=== PATIENT | male | born 1975 | race Caucasian/White ===

== ENCOUNTER 2016-06-07 12:54 | Emergency (ER) | payer OTHER ==
[~2016-06-07] VITALS: Ht 175.3 cm; Wt 118.6 kg
[~2016-06-07 12:54] MED LIST: ASPEC81 PO; LPR25 PO; LPT40 PO; LSN20 PO; NAPR1TAB9 PO; NICO1DIS7 TD; NSP500 PO; PLV75 PO
[2016-06-07 12:58] VITALS: TEMP 37.1; Ht 175.3 cm; Wt 118.6 kg
[2016-06-07] MEDS ORDERED: HYDROmorphone INJ 1 MG/ML SYR IM ONE ×2 (13:15→14:30)
--- NOTE | 2016-06-07 13:19 | EMERGENCY ROOM VISIT NOTE ---
History Report prepared by Liza: William Harris Under the Supervision of: Dr. Jon Donahue M.D. First contact with patient: 13:04 Chief Complaint: ABDOMINAL PAIN Stated Complaint: SOMETHING POPPED IN INTESTINE REGION Nursing Triage Summary: Patient c/o left sided abd pain after coughing last night. States something popped. also c/o nausea this morning. History of Present Illness The patient is a 41 year old male who presents to the Emergency Room with complaints of persistent lower back pain that started 0 last night. He says he was smoking, and then coughed. After coughing, he suddenly felt something pop and has had persistent pain ever since. The patient notes that he has pain with any general movement. He did do a 14-mile kayak trip the day before the pain came on. On the way to the hospital, he states that he coughed and had a little pop, and then the pain began to subside a bit. 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 He denies any bowel problems, but he notes that it is hard to push them due to the pain. Source of History: patient Onset: 2329 last night Position: back (lower) Timing: other (persistent) Modifying Factors (Worsening): movement Note: Associated symptoms: Denies any bowel problems, but notes that it is hard to push them due to the pain. Review of Systems All systems have been listed, reviewed, and are negative other than those previously mentioned. Please see Additional Medical History Sheet. Past Medical & Surgical Medical Problems: (1) Anxiety (2) Anxiety State Nos (3) CAD (coronary artery disease) (4) Chronic Liver Dis Nec (5) Fatty liver (6) H/O acute pancreatitis (7) History of alcohol abuse (8) HTN (hypertension) (9) Hyperlipidemia (10) Hypertension Nos (11) [place] (12) Tobacco abuse Surgical Problems: (1) S/P coronary artery stent placement Family History Diabetes mellitus GRANDFATHER Gallbladder disease Heart disease MOTHER Hypertension Kidney disease Kidney stones Social History Smoking Status: Current Every Day Smoker Alcohol Use: occasionally Drug Use: marijuana Marital Status: single Occupation Status: employed Current/Historical Medications Scheduled Aspirin (Aspirin EC Low Dose), 81 MG PO QAM Atorvastatin (Atorvastatin Calcium), 40 MG PO QAM Clopidogrel Bisulfate (Clopidogrel), 75 MG PO QAM Cyclobenzaprine Hcl (Flexeril), 10 MG PO TID Lisinopril (Lisinopril), 20 MG PO QAM Metoprolol Tartrate (Lopressor), 12.5 MG PO BID Naproxen (Aleve), 440 MG PO prn ud Niacin (Niacin ER), 500 MG PO QAM Varenicline Tartrate (Chantix), 2 TAB PO UD Scheduled PRN Ibuprofen Tab (Motrin), 600 MG PO Q6H PRN for Pain Oxycodone Immediate Rel Tab (Roxicodone Ir), 1-2 TAB PO Q4H PRN for Severe Pain Allergies Coded Allergies: No Known Allergies (Verified , 06/07/16) Physical Exam Vital Signs Date Time Temp Pulse Resp B/P Pulse Ox O2 Delivery O2 Flow Rate FiO2 06/07/16 14:29 70 16 172/122 97 Room Air 06/07/16 12:58 37.1 78 20 116/71 96 Room Air Physical Exam GENERAL: Patient awake, alert, oriented x 3. Patient follows commands. Patient does not appear toxic. Patient is adequately hydrated and well- nourished. SKIN: No erythema, pallor, cyanosis or rash HEENT: Normal head, pupils equal, reactive to light and accommodation. LUNGS: Clear to auscultation. No wheezes, no rales, no rhonchi. HEART: No murmurs. No gallops. No rubs BACK: Tenderness and spasm to right perivertebral musculature in L2 through L4. No tenderness over spine, no step-offs noted. ABDOMEN: No masses, no rebound, no hepatomegaly or splenomegaly. EXTREMITIES: No signs of trauma or infection. No pedal or pretibial edema. No calf or thigh tenderness. NEUROLOGIC: Cranial nerves II-XII within normal limits. No gross motor sensory function deficits. Medical Decision & Procedures ER Provider Diagnostic Interpretation: X ray results are stated below per my interpretation and the radiologist's interpretation. L-SPINE MIN 4 VIEWS ROUTINE CLINICAL HISTORY: Right-sided back pain. COMPARISON: CT of the chest, abdomen and pelvis October 14, 2015. FINDINGS: Alignment of the lumbar spine is anatomic. Vertebral body heights are maintained. There is no acute fracture. Disc spaces are preserved. IMPRESSION: Unremarkable lumbar spine radiographs. Electronically signed by: Devan Bernardo M.D. 06/07/2016 1:55 PM Dictated Date/Time: 06/07/2016 1:54 PM Medications Administered Medications (Trade) Dose Ordered Sig/Delia Route Start Time Stop Time Status Last Admin Dose Admin Hydromorphone HCl (Dilaudid Inj) 1 mg ONE ONCE IM 06/07/16 13:15 06/07/16 13:16 DC 06/07/16 13:22 1 MG Hydromorphone HCl (Dilaudid Inj) 1 mg ONE ONCE IM 06/07/16 14:30 06/07/16 14:31 DC 06/07/16 14:29 1 MG ED Course 1306: Past medical records reviewed. The patient was evaluated in room A12B. A complete history and physical examination was performed. 1315: Ordered Dilaudid Inj 1 mg IM. 1420: I reevaluated the patient and he wants another shot. I will give him another one. 1443: Upon reevaluation, the patient appeared to have improvement of his symptoms. I discussed today's findings with him. He verbalized agreement of the treatment plan. He was discharged home. Medical Decision Nurses notes reviewed. Medical history sheet reviewed. Differential diagnosis includes but is not limited to: muscular strain, cauda equina, ruptured nucleus pulposus. Lumbar spine x-rays were obtained. No fracture, dislocation subluxation was seen. The patient appears to have muscular strain and spasm. The patient has no neurologic deficits. He was given 1 mg of IM Dilaudid 2. The patient will be discharged with prescriptions for Flexeril and OxyIR. The patient is to follow-up with his family physician. [place] Drug Monitoring Program Search Results: patient reviewed within database, no issues identified Impression Primary Impression: Back strain Additional Impression: Back spasm Scribe Attestation The scribe's documentation has been prepared under my direction and personally reviewed by me in its entirety. I confirm that the note above accurately reflects all work, treatment, procedures, and medical decision making performed by me. Departure Information Dispostion Home / Self-Care Prescriptions Oxycodone Immediate Rel Tab (ROXICODONE IR) 5 Mg Tab 1-2 TAB PO Q4H Y for Severe Pain, #20 TAB Prov: Jon Donahue M.D. 06/07/16 Cyclobenzaprine Hcl (FLEXERIL) 10 Mg Tab 10 MG PO TID, #20 TAB Prov: Jon Donahue M.D. 06/07/16 Ibuprofen Tab (MOTRIN) 600 Mg Tab 600 MG PO Q6H Y for Pain, #30 TAB Prov: Jon Donahue M.D. 06/07/16 Referrals Jose Navarro M.D. (PCP) Patient Instructions My [facility] Additional Instructions One Flexeril every 8 hours until pain has resolved. 600 mg ibuprofen every 6 hours until pain has resolved. Do not take Aleve or Naprosyn with ibuprofen. 1-2 OxyIR every 4 hours as needed for more severe pain. Do not drive or operate machinery while taking Flexeril or OxyIR. Follow-up with your family physician within the next 2 weeks. Problem Qualifiers
--- NOTE | 2016-06-07 13:56 | DIAGNOSTIC IMAGING REPORT ---
L-SPINE MIN 4 VIEWS ROUTINE CLINICAL HISTORY: Right-sided back pain. COMPARISON: CT of the chest, abdomen and pelvis October 14, 2015. FINDINGS: Alignment of the lumbar spine is anatomic. Vertebral body heights are maintained. There is no acute fracture. Disc spaces are preserved. IMPRESSION: Unremarkable lumbar spine radiographs. Electronically signed by: Devan Bernardo M.D. 06/07/2016 1:55 PM Dictated Date/Time: 06/07/2016 1:54 PM
[2016-06-07] MEDS ORDERED: VAREPAK PO (14:25)
[2016-06-07 14:29] VITALS: BP 172/122; PULSE 70; O2SAT 97
[2016-06-07] MEDS ORDERED: OXYC1TAB3 PO (14:39)
[2016-06-07] MEDS ORDERED: CYCL10TA6 PO (14:39)
[2016-06-07] MEDS ORDERED: IBUP-1427 PO (14:39)
[2016-06-09] MEDS ORDERED: ATOR-22 PO (08:51)
[2016-06-09] MEDS ORDERED: METF-80 PO (08:51)
[2016-06-09] MEDS ORDERED: VAREPAK PO (08:51)
[2016-06-09] MEDS ORDERED: ZNTT/150 PO (08:51)
[2016-06-09] MEDS ORDERED: CLOP1TAB15 PO (08:51)
[2016-06-09] MEDS ORDERED: AMIT10TA6 PO (08:51)
[2016-06-09] MEDS ORDERED: IBUP600T44 PO (08:52)
[2016-06-09] MEDS ORDERED: OXYC1CAP5 PO (08:52)
[2016-06-09] MEDS ORDERED: CYCL10TA6 PO (08:52)
== END 2016-06-07 14:53 | disposition home or self-care (01) ==
LOC: C.EDB 12:55 → C.EDA 14:53
DX: S39.012A Strain of muscle, fascia and tendon of lower back, initial encounter (principal); M62.830 Muscle spasm of back; X58.XXXA Exposure to other specified factors, initial encounter; I25.10 Atherosclerotic heart disease of native coronary artery without angina pectoris; I10 Essential (primary) hypertension; E78.5 Hyperlipidemia, unspecified; F17.200 Nicotine dependence, unspecified, uncomplicated; I25.2 Old myocardial infarction; Z79.02 Long term (current) use of antithrombotics/antiplatelets; Z79.82 Long term (current) use of aspirin; Z79.899 Other long term (current) drug therapy; Z83.3 Family history of diabetes mellitus; Z82.49 Family history of ischemic heart disease and other diseases of the circulatory system; Z84.1 Family history of disorders of kidney and ureter

== ENCOUNTER → 2016-06-16 | Day surgery (SDC) | payer OTHER ==
[2016-06-09 08:52] VITALS: Ht 177.8 cm; Wt 118.2 kg
[~2016-06-16] VITALS: Ht 177.8 cm; Wt 118.2 kg
[~2016-06-16] MED LIST changes: +AMIT10TA6 PO; -ASPEC81 PO; +ATOR-22 PO; +CIPROFLOXACIN / D5W 400 MG IV SCH; +CIPROFLOXACIN 400MG / 200ML D5W IV ONE; +CLOP1TAB15 PO; +CYCL10TA6 PO; +IBUP600T44 PO; +LACTATED RINGER'S 1000ML 1,000 ML IV ONE; +LACTATED RINGER'S 1000ML 1,000 ML IV SCH; -LPR25 PO; -LPT40 PO; -LSN20 PO; +METF-80 PO; -NAPR1TAB9 PO; -NICO1DIS7 TD; -NSP500 PO; +OXYC1CAP5 PO; -PLV75 PO; +VAREPAK PO; +ZNTT/150 PO
--- NOTE | 2016-06-16 10:03 | Endo History and Physical ---
History & Physical Date of Service: Jun 16, 2016. Chief Complaint: pancreatic cyst Referring Physician: Ms. Giuseppe garcia History of Present Illness 41 year old male found to have a 16 to 18 mm pancreatic head cyst for EUS today. Past Surgical History Hx Cardiac Surgery: Yes (HEART CATH X STENT) Hx Abdominal Surgery: No Hx Post-Op Nausea and Vomiting: No Hx Cancer Surgery: No Hx Thoracic Surgery: No Hx Orthopedic: Yes (RIGHT ORIF TIB/FIB, CLOSED REDUCTION WRIST) Hx Urinary Tract Surgery: No Social History Smoking Status: Current Every Day Smoker Hx Substance Use: Yes (MARIJUANNA DAILY) Hx Alcohol Use: Yes (SOCIAL) Allergies Coded Allergies: No Known Allergies (Verified , 06/09/16) Current Medications Reported Home Medications Medications Dose Route/Sig Max Daily Dose Days Date Category Dose Instructions Flexeril (Cyclobenzaprine Hcl) 10 Mg Tab 10 Mg PO TID PRN 06/09/16 Reported Oxycodone Hcl 5 Mg Cap 1 Cap PO QID PRN 06/09/16 Reported Motrin (Ibuprofen) 600 Mg Tab 600 Mg PO Q6H PRN 06/09/16 Reported Chantix (Varenicline Tartrate) 1 Merlin Merlin 2 Tab PO UD 28 06/09/16 Reported Fortamet (Metformin Hcl) 500 Mg Tab 500 Mg PO BID 06/09/16 Reported Zantac (Ranitidine HCl) 150 Mg Tab 150 Mg PO BID 06/09/16 Reported Lipitor (Atorvastatin Calcium) 20 Mg Tab 20 Mg PO QAM 06/09/16 Reported Elavil (Amitriptyline Hcl) 10 Mg Tab 10 Mg PO HS 06/09/16 Reported Plavix (Clopidogrel Bisulfate) 75 Mg Tab 75 Mg PO QAM 06/09/16 Reported STOP 2 DAYS PRIOR Vital Signs Weight (Kilograms): 118.18 Height (Feet): 5 Height (Inches): 10 Assessment and Plan EGD / EUS planned today for evaluation of a moderate sized pancreatic cyst. The patient walked out and elected to not undergo the procedure today.
== END | disposition home or self-care (01) ==
LOC: C.ACU 10:06
PROVIDERS: ATTEND Internal Medicine Gastroenterology
DX: K86.2 Cyst of pancreas (principal); F17.210 Nicotine dependence, cigarettes, uncomplicated; Z79.899 Other long term (current) drug therapy; Z53.20 Procedure and treatment not carried out because of patient's decision for unspecified reasons

== ENCOUNTER 2018-08-18 01:51 | Inpatient (IN) ==
[2018-08-18] MEDS ORDERED: ONDANSETRON INJ 2 MG/ML 2 ML VIAL IV STA (02:20)
[2018-08-18] MEDS ORDERED: MoRPHine SULFATE 4 MG/ML 1 ML CARP\\VIAL IV STA (02:20)
[2018-08-18] MEDS ORDERED: SODIUM CHLORIDE 0.9% 1000ML 1,000 ML IV SCH (02:30)
[2018-08-18 02:31] LABS: Basophils # (auto) 0.01 K/uL (0-0.2); Basophils % (auto) 0.1 %; Eosinophils # (auto) 0.18 K/uL (0-0.5); Eosinophils % (auto) 1.7 %; Hematocrit (blood only) 43.4 % (42-52); Hemoglobin 15.8 g/dL (14.0-18.0); Immature Granulocytes # (auto) 0.02 K/uL (0.00-0.02); Immature Granulocytes % (auto) 0.2 %; Lymphocytes # (auto) 2.23 K/uL (1.2-3.4); Lymphocytes % (auto) 20.8 %; Mean Corpuscular Hgb Conc 36.4 g/dL (32-36); Mean Corpuscular Volume 84.3 fL (80-100); Mean Platelet Volume 8.6 fL (7.4-10.4); Monocytes # (auto) 0.93 K/uL (0.11-0.59); Monocytes % (auto) 8.7 %; Neutrophils # (auto) 7.37 K/uL (1.4-6.5); Neutrophils % (auto) 68.5 %; Platelet Count 169 K/uL (130-400); RDW Coefficient of Variation 12.8 % (11.5-14.5); Red Blood Count 5.15 M/uL (4.7-6.1); White Blood Count 10.74 K/uL (4.8-10.8)
[2018-08-18 02:39] LABS: Alanine Aminotransferase 37 U/L (12-78); Amylase 599 U/L (25-115); Aspartate Aminotransferase 21 U/L (15-37); BUN Creatinine Ratio 14.9 (10-20); Blood Urea Nitrogen 15 mg/dl (7-18); Calcium 8.6 mg/dl (8.5-10.1); Carbon Dioxide 28 mmol/L (21-32); Chloride 103 mmol/L (98-107); Creatinine Clr Calc Pharmacy 122.6 ml/min; Est GFR (African American) 107.9; Est GFR (Non-African American) 93.1; Glucose 106 mg/dl (70-99); Potassium 3.6 mmol/L (3.5-5.1); Sodium 135 mmol/L (136-145)
[2018-08-18 02:50] LABS: Albumin Globulin Ratio 1.1 (0.9-2); Alkaline Phosphatase 92 U/L (45-117); Bilirubin,Total 0.5 mg/dl (0.2-1); Globulin 3.7 gm/dl (2.5-4.0); Total Protein 7.7 gm/dl (6.4-8.2); Troponin I < 0.015 ng/ml (0-0.045)
[2018-08-18] MEDS ORDERED: IOVERSOL 100ml IV PRN (03:25)
[2018-08-18 03:37] LABS: Appearance Urine Clear (Clear); Bilirubin Urine Negative (Negative); Blood Urine Negative (Negative); Color Urine Yellow; Glucose Urine UA Negative (Negative); Ketones Urine Negative (Negative); Leukocyte Esterase Urine Negative (Negative); Nitrite Urine Negative (Negative); Protein Urine Negative (Negative); Specific Gravity Urine 1.021 (1.000-1.030); Urobilinogen Urine Negative (Negative); pH Urine 7.5 (4.5-7.5)
[2018-08-18 03:58] LABS: Amphetamines+Metham, Urine Neg (Neg); Barbiturates, Urine Neg (Neg); Benzodiazepine, Urine Neg (Neg); Cocaine, Urine Neg (Neg); MDMA (Ecstacy), Urine Neg (Neg); Methadone, Urine Neg (Neg); Opiate, Urine Pos (Neg); Phencyclidine, Urine Neg (Neg)
[2018-08-18] MEDS ORDERED: HYDROmorphone INJ 1 MG/ML SYRINGE IV STA (04:05)
[2018-08-18] MEDS ORDERED: ACETAMINOPHEN 325 MG TAB PO PRN (05:54)
[2018-08-18] MEDS ORDERED: ONDANSETRON INJ 2 MG/ML 2 ML VIAL IV PRN (05:54)
[2018-08-18] MEDS ORDERED: LORazepam 1 MG/2 ML VIAL IV PRN (05:54)
[2018-08-18] MEDS ORDERED: GABAPENTIN 1200MG ALCOHOL WITHDRAWAL LOAD PO STA (05:54)
[2018-08-18] MEDS ORDERED: MULTI-VITAMIN INFUSION 10 ML, THIAMINE HCL 100 MG, FOLIC ACID 1 MG in SODIUM CHLORIDE 0... IV SCH (05:54)
[2018-08-18] MEDS ORDERED: GABAPENTIN 600 MG TAB PO SCH ×2 (06:00→12:00)
[2018-08-18] MEDS ORDERED: THIAMINE HCL 100 MG in SYRINGE 9 ML IV SCH (06:00)
--- NOTE | 2018-08-18 06:12 | History and Physical Report ---
DATE OF ADMISSION: 08/18/2018 CHIEF COMPLAINT: Abdominal pain. HISTORY OF PRESENT ILLNESS: This is a 43-year-old male with past medical history significant for CAD status post stent, hypertension, hyperlipidemia, history of pancreatitis, history of possible IPMN, history of alcohol abuse, tobacco abuse. He presents with abdominal pain. The patient is not taking any medications for the heart disease and is supposed to also follow with GI for his IPMN, but he did not follow with any criminal justice teacher or GI in the last 2 years. Not taking any medication because he thinks the medication does not help him. He is still drinking alcohol. 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 Last time he drank was 3 days ago. On 08/17/2018, he went to [facility] because of abdominal pain. The pain started in the morning at 9:00 a.m., severe in nature with some radiation to the back. He thought he might be having pancreatitis and he tried to be on liquid food, but it did not help. He went to [facility]. Because of them not giving any medications to him, he left the hospital, but when the labs came back, he was called and told that his lipase was elevated and he has pancreatitis and the patient chose to come to [facility]. Currently with the pain medication the pain is improved, but he says whenever he moves, he still has belly pain. His hemodynamics are stable. He has some headache. No runny nose, no sore throat, no cold symptoms, no chest pain, no shortness of breath, no cough. He felt somewhat feverish. No nausea, no vomiting, no diarrhea or constipation. No swelling in the legs. No rash. ALLERGIES: No known drug allergies. PAST MEDICAL HISTORY: As mentioned above. PAST SURGICAL HISTORY: Status post stent placement. MEDICATIONS: Not taking any medications. FAMILY HISTORY: Grandfather has diabetes, gallbladder, and heart disease. Mother has hypertension, kidney disease, and kidney stones. SOCIAL HISTORY: Smokes 1 pack a day. Alcohol, drinks several beers everyday, last drink was 3 days ago. History of marijuana use. Currently lives with his . REVIEW OF SYMPTOMS: As per HPI. Rest of the review of symptoms negative. PHYSICAL EXAMINATION: GENERAL: The patient is obese, not in acute distress. VITAL SIGNS: Temperature 36.9, pulse 70, respiratory rate 18, blood pressure 155/85, oxygen 95% on room air. HEENT: No pallor, no icterus. Pupils equal, round, and reactive to light. NECK: No JVD, no neck masses. CARDIOVASCULAR: S1, S2 heard, regular rate and rhythm, no murmur, no gallop. RESPIRATORY SYSTEM: Normal AP diameter. No accessory muscle use. No wheezing, no crackles. ABDOMEN: Soft, bowel sounds present. Diffuse tenderness. Mild guarding. No rigidity. CENTRAL NERVOUS SYSTEM: Cranial nerves II-XII grossly intact. Nonfocal. EXTREMITIES: No edema, no erythema. LABORATORY DATA: WBC 10.7, hemoglobin 15.8, hematocrit 45.4, platelets 169. Sodium 135, potassium 3.6, chloride 103, bicarbonate 28, BUN 15, creatinine 1, serum glucose 106, calcium 8.6, total bilirubin 0.5, AST 21, ALT 37, alkaline phosphatase 92. Troponin I less than 0.015, amylase 599, lipase 4639. TSH 3.5. Urinalysis negative. Urine drug screen positive for opiates. Ethyl alcohol level less than 3. IMAGING DATA: CT of abdomen and pelvis, official reading pending. EKG: Normal sinus rhythm at a rate of 70, no significant changes from previous EKG. ASSESSMENT AND PLAN: This is a 43-year-old male with past medical history of coronary artery disease, status post stent, hypertension, hyperlipidemia, history of pancreatitis, history of possible IPMN, alcohol abuse, tobacco abuse, presents with abdominal pain and found to have acute pancreatitis. 1. Acute pancreatitis, most likely alcohol induced. History of IPMN, supposed to follow with GI, but not following. Last alcohol drink was [address] will place him on n.p.o., aggressive IV fluids Ringer's lactate 200 mL hour, IV Dilaudid p.r.n., IV antiemetics p.r.n. Follow up report of CT of the abdomen and pelvis. Repeat the lipase. Consult GI for further recommendations. 2. History of coronary artery disease, status post stent, not taking any medications, not following with cardiology. Consider consulting cardiology while in the hospital and starting on his cardiac meds. Currently stable. EKG and troponins are negative and asymptomatic. 3. Hypertension, not taking any medication, monitor the blood pressure. 4. Hyperlipidemia, follow fasting lipid profile, not on any medication. 5. Alcohol abuse. States his last drink was 3 days ago. Alcohol level is less than 3.Will monitor for withdrawal. Start him on gabapentin withdrawal protocol and Ativan p.r.n. We will give banana bag. We will place him on IV thiamine daily and multivitamin daily. 6. History of tobacco abuse, needs counseling. 7. Deep venous thrombosis prophylaxis, sequential compression devices for now. 8. Disposition: Admit to medical floor. Level 1 full code. MTDD
--- NOTE | 2018-08-18 06:18 | Emergency Department Note ---
History of Present Illness General Chief complaint: Abdominal Pain Time Seen by Provider: 08/18/18 02:03 History of Present Illness Maximum Pain Intensity: 7 This is a 43-year-old male presenting to the emergency department for evaluation evaluation of pancreatitis. The patient states that his symptoms began within the past 24 hours. The patient initially went to [place] emergency department for his symptoms. The patient arrived at roughly 5:00 PM. Blood work was obtained and CT scan was ordered. The patient states that they were not adequately treating his pain, and he left AGAINST MEDICAL ADVICE around 6:30 PM. The patient was contacted roughly 11 PM with results that his lipase was greater than 5000. The patient was sleeping at the time, and his did not wish to wake him. When the patient awoke she told him of the results, and now the patient presents to the ER here for further management. The patient has a past history of cardiac disease and chronic alcohol use. The patient rates his current pain a 7/10. The patient did eat asparagus, shrimp, and rice after leaving [facility]. He did sleep for 4 hours without difficulty. The patient has had pancreatitis in the past with possible pancreatic cyst. The patient was to have scoping done on this cyst roughly 2 years ago, but refused further testing. The patient has essentially stopped all his medications and follow-up despite having the cardiac history. Home Medications Home Medications Medication Instructions Recorded Confirmed Type No Known Home Medications 08/18/18 08/18/18 History Allergies Allergy/AdvReac Type Severity Reaction Status Date / Time No Known Allergies Allergy Unknown Verified 08/18/18 02:22 Past Med/Surg History Medical History HTN (hypertension) (Chronic) H/O acute pancreatitis (Chronic) Anxiety (Chronic) Hyperlipidemia (Chronic) CAD (coronary artery disease) (Chronic) Tobacco abuse (Chronic) History of alcohol abuse (Chronic) Fatty liver (Chronic) Surgical History S/P coronary artery stent placement (Chronic) Social History Preferred Language: Kyrgyz Communication Ability: Effective Beliefs That Will Affect Care: None Current Living Situation: Spouse and Family Other Information That Helps Us Care for You: No Feels Safe at Home: Yes Safety Concerns: Feels Safe At This Time Smoking Status: Current every day smoker Tobacco Type: cigarettes Do You Dip or Chew Tobacco: No Second Hand Exposure: Yes Tobacco Cessation Education Requested by Patient: No Hx Alcohol Use: Yes Alcohol type: beer and hard liquor Hx Substance Use: No Review of Systems A total of 10 systems reviewed and were otherwise negative Physical Exam Vital Signs Vital Signs - 24 hr 08/18/18 01:56 08/18/18 03:39 08/18/18 05:32 Temperature 36.9 C Temperature Source Oral Sepsis Recent Fever Within 48 Hours No Sepsis Action Taken by Nursing No Action Required Pulse Rate 75 73 Pulse Rate [Right Finger] 70 Respiratory Rate 18 18 18 Respiratory Effort / Characteristics Non-Labored Spontaneous Non-Labored Spontaneous Respiratory Depth Normal Normal Respiratory Pattern Regular Regular Blood Pressure 186/111 H 151/101 H Blood Pressure [Right Arm] 155/85 H Blood Pressure Mean 136 Blood Pressure Mean [Right Arm] 108 Blood Pressure Position Sitting Blood Pressure Position [Right Arm] Lying Pulse Oximetry 97 95 96 Oxygen Delivery Method Room Air Room Air Room Air VITALS: Vitals are noted on the nurse's note and reviewed by myself. Vital signs stable. GENERAL: Well-developed, well-nourished, white male, who is in no acute distress and resting comfortably. Patient is cooperative with the examination. HEAD: Normocephalic atraumatic. NECK: Supple without nuchal rigidity. No lymphadenopathy. No thyromegaly. Cervical spine is nontender. HEART: Regular rate and rhythm without murmurs gallops or rubs. LUNGS: Clear to auscultation bilaterally without wheezes, rales or rhonchi. No retractions or accessory muscle use. ABDOMEN: Positive normal bowel sounds x 4. Soft with mild tenderness above the umbilicus. No distinct lower abdominal tenderness. No rebound or guarding. MUSCULOSKELETAL: No muscle atrophy, erythema, or edema noted. Full range of m otion in all extremities. NEURO: Patient was alert and oriented to person place and time. CN II through XII grossly intact. Course Administered Medications Discontinued Medications Hydromorphone HCl (Dilaudid) 1 mg IV NOW STA Stop: 08/18/18 04:06 Last Admin: 08/18/18 05:38 Dose: 1 mg Documented by: [id number] Sodium Chloride (Nss 1000ml) 1,000 mls @ 999 mls/hr IV .Q1H1M SAYRA Stop: 08/18/18 03:30 Last Infusion: 08/18/18 03:32 Dose: 0 mls/hr Documented by: [id number] Admin: 08/18/18 02:32 Dose: 999 mls/hr Documented by: [id number] Ioversol (Optiray 320 100ml) 100 ml IV ONCE PRN PRN Reason: Interaction Checking Stop: 08/22/18 03:24 Last Admin: 08/18/18 03:26 Dose: 93 ml Documented by: [id number] Morphine Sulfate (Morphine Sulfate) 4 mg IV NOW STA Stop: 08/18/18 02:21 Last Admin: 08/18/18 02:32 Dose: 4 mg Documented by: [id number] Ondansetron HCl (Zofran) 4 mg IV NOW STA Stop: 08/18/18 02:21 Last Admin: 08/18/18 02:32 Dose: 4 mg Documented by: [id number] Medical Decision Making Differential Diagnosis Differential diagnosis: Etiologies such as biliary colic, cholecystitis, hepatitis, pancreatitis, cardiac disease, pancreatitis, gastritis, peptic ulcer disease, appendicitis, cystitis, diverticulitis, mesenteric ischemia, inflammatory bowel disease, ileus, bowel obstruction, testicular/adnexal torsion, aortic pathology, shingles, as well as others were considered Laboratory Data Result diagrams: 08/18/18 02:14 08/18/18 02:14 Lab Results 08/18/18 08/18/18 08/18/18 Range/Units 02:14 02:14 03:11 WBC 10.74 (4.8-10.8) K/uL RBC 5.15 (4.7-6.1) M/uL Hgb 15.8 (14.0-18.0) g/dL Hct 43.4 (42-52) % MCV 84.3 (80-100) fL MCH 30.7 (25-34) pg MCHC 36.4 H (32-36) g/dL RDW Std Deviation 39.0 (36.4-46.3) fL RDW Coeff of Dmitry 12.8 (11.5-14.5) % Plt Count 169 (130-400) K/uL MPV 8.6 (7.4-10.4) fL Immature Gran % (Auto) 0.2 % Neut % (Auto) 68.5 % Lymph % (Auto) 20.8 % [place] % (Auto) 8.7 % Eos % (Auto) 1.7 % Baso % (Auto) 0.1 % Immature Gran # (Auto) 0.02 (0.00-0.02) K/uL Neut # (Auto) 7.37 H (1.4-6.5) K/uL Lymph # (Auto) 2.23 (1.2-3.4) K/uL [place] # (Auto) 0.93 H (0.11-0.59) K/uL Eos # (Auto) 0.18 (0-0.5) K/uL Baso # (Auto) 0.01 (0-0.2) K/uL Sodium 135 L (136-145) mmol/L Potassium 3.6 (3.5-5.1) mmol/L Chloride 103 (98-107) mmol/L Carbon Dioxide 28 (21-32) mmol/L Anion Gap 4.0 (3-11) BUN 15 (7-18) mg/dl Creatinine 1.00 (0.6-1.4) mg/dl Est Cr Clr Drug Dosing 122.6 ml/min Est GFR ( Amer) 107.9 Est GFR (Non-Af Amer) 93.1 BUN/Creatinine Ratio 14.9 (10-20) Glucose 106 H (70-99) mg/dl Calcium 8.6 (8.5-10.1) mg/dl Total Bilirubin 0.5 (0.2-1) mg/dl AST 21 (15-37) U/L ALT 37 (12-78) U/L Alkaline Phosphatase 92 (45-117) U/L Troponin I < 0.015 (0-0.045) ng/ml Total Protein 7.7 (6.4-8.2) gm/dl Albumin 4.0 (3.4-5.0) gm/dl Globulin 3.7 (2.5-4.0) gm/dl Albumin/Globulin Ratio 1.1 (0.9-2) Amylase 599 H (25-115) U/L Lipase 4639 H (73-393) U/L TSH 3.560 (0.300-4.500) uIu/ml Urine Color Urine Appearance (Clear) Urine pH (4.5-7.5) Ur Specific [place] (1.000-1.030) Urine Protein (Negative) Urine Glucose (UA) (Negative) Urine Ketones (Negative) Urine Blood (Negative) Urine Nitrite (Negative) Urine Bilirubin (Negative) Urine Urobilinogen (Negative) Ur Leukocyte Esterase (Negative) Urine Opiates Screen (Neg) Ur Methadone, Qual (Neg) Urine Barbiturates (Neg) Ur Phencyclidine (PCP) (Neg) U Amphetamin/Meth Scrn (Neg) MDMA (Ecstasy) Screen (Neg) U Benzodiazepines Scrn (Neg) Ur Cocaine Metabolite (Neg) U Marijuana (THC) Screen (Neg) Ethyl Alcohol mg/dL < 3.0 (0-3) mg/dl 08/18/18 08/18/18 Range/Units 03:20 03:20 WBC (4.8-10.8) K/uL RBC (4.7-6.1) M/uL Hgb (14.0-18.0) g/dL Hct (42-52) % MCV (80-100) fL MCH (25-34) pg MCHC (32-36) g/dL RDW Std Deviation (36.4-46.3) fL RDW Coeff of Dmitry (11.5-14.5) % Plt Count (130-400) K/uL MPV (7.4-10.4) fL Immature Gran % (Auto) % Neut % (Auto) % Lymph % (Auto) % [place] % (Auto) % Eos % (Auto) % Baso % (Auto) % Immature Gran # (Auto) (0.00-0.02) K/uL Neut # (Auto) (1.4-6.5) K/uL Lymph # (Auto) (1.2-3.4) K/uL [place] # (Auto) (0.11-0.59) K/uL Eos # (Auto) (0-0.5) K/uL Baso # (Auto) (0-0.2) K/uL Sodium (136-145) mmol/L Potassium (3.5-5.1) mmol/L Chloride (98-107) mmol/L Carbon Dioxide (21-32) mmol/L Anion Gap (3-11) BUN (7-18) mg/dl Creatinine (0.6-1.4) mg/dl Est Cr Clr Drug Dosing ml/min Est GFR ( Amer) Est GFR (Non-Af Amer) BUN/Creatinine Ratio (10-20) Glucose (70-99) mg/dl Calcium (8.5-10.1) mg/dl Total Bilirubin (0.2-1) mg/dl AST (15-37) U/L ALT (12-78) U/L Alkaline Phosphatase (45-117) U/L Troponin I (0-0.045) ng/ml Total Protein (6.4-8.2) gm/dl Albumin (3.4-5.0) gm/dl Globulin (2.5-4.0) gm/dl Albumin/Globulin Ratio (0.9-2) Amylase (25-115) U/L Lipase (73-393) U/L TSH (0.300-4.500) uIu/ml Urine Color Yellow Urine Appearance Clear (Clear) Urine pH 7.5 (4.5-7.5) Ur Specific [place] 1.021 (1.000-1.030) Urine Protein Negative (Negative) Urine Glucose (UA) Negative (Negative) Urine Ketones Negative (Negative) Urine Blood Negative (Negative) Urine Nitrite Negative (Negative) Urine Bilirubin Negative (Negative) Urine Urobilinogen Negative (Negative) Ur Leukocyte Esterase Negative (Negative) Urine Opiates Screen Pos H (Neg) Ur Methadone, Qual Neg (Neg) Urine Barbiturates Neg (Neg) Ur Phencyclidine (PCP) Neg (Neg) U Amphetamin/Meth Scrn Neg (Neg) MDMA (Ecstasy) Screen Neg (Neg) U Benzodiazepines Scrn Neg (Neg) Ur Cocaine Metabolite Neg (Neg) U Marijuana (THC) Screen Neg (Neg) Ethyl Alcohol mg/dL (0-3) mg/dl Imaging Data Radiologist's Impression: Preliminary Findings Only See Final Report For Complete Findings CT ABDOMEN & PELVIS With Contrast: Compared to 12/01/2006. Stranding at the pancreatic head and duodenum, suggestive of duodenitis or pancreatitis. An 18 mm hypodensity in the uncinate process of the pancreas, possible small fluid collection or mass. Mildly distended gallbladder. Mild fluid and air in small bowel loops, possible enteritis or ileus. Scattered colonic diverticula. Normal caliber appendix. Fatty liver. Small fat-containing bilateral inguinal and umbilical hernias. Small mesenteric and retroperitoneal lymph nodes. Nonspecific bibasilar groundglass densities. ECG Data Additional Comments: Normal sinus rhythm @70 bpm Inferior infarct (cited on or before 08-AUG-2014) Abnormal ECG When compared with ECG of 14-OCT-2015 15:25, No significant change was found MDM Narrative Physical exam and history were performed. Nursing notes, EMR, and Medication List were personally reviewed. Patient appears to have pancreatitis on labs from another hospital from less than 12 hours ago. The patient does have some tenderness in the distribution. IV access was established and labs were obtained. The patient was given IV saline, 4 mg IV morphine, and [address] scan was performed. We did get records from [facility], which essentially correlates with the patient's history. The patient had been given IV morphine at their facility. His troponin and alcohol were both negative, and he did have a lipase of greater than 5000. The patient had made comments to staff that "it takes 10 mg Dilaudid" to get him comfortable. The patient's blood work is as above and was reviewed. He does not have an elevated white blood cell count, gross anemia, or significant electrolyte imbalance. Amylase is 599 and lipase is 4639. Troponin x1 is negative. Urine does not show evidence of infection alcohol is negative. Drug of abuse screen is positive for opioids, which was expected as he had morphine earlier today. CT scan was reviewed by myself and radiology suggesting acute pancreatitis which does correlate with his symptoms. On reevaluation the patient is sleeping comfortably in his ER bed. He continues to complain of high levels of pain. Additional pain medication was ordered. The case was discussed with the on-call [facility] hospitalist who agreed to evaluate the patient here in the department. Please see their dictation for f verna patient course, plan, and disposition. The chart was completed utilizing [employer] Speech Voice Recognition Software. Grammatical errors, random word insertions, pronoun errors, and incomplete sentences are an occasional consequence of this system due to software limitations, ambient noise, and hardware issues. Any formal questions or concerns about the content, text, or information contained within the body of this dictation should be directly addressed to the provider for clarification. . Impression & Plan Acute pancreatitis Discharge Plan Visit Data *Final* Discharge Date/Time: 08/18/18 05:32 Chief Complaint: Abdominal Pain ED Provider: Fatmata Jones ED Midlevel Provider: Jos Barrera Discharge Problem: Acute pancreatitis Patient Disposition: Admitted As Inpatient Discharge Instructions Interventions: ED Discharge Assessment Last Done: 08/18/18 05:32 Discharge Problem: Acute pancreatitis Qualifiers: Pancreatitis type: unspecified pancreatitis type Acute pancreatitis complication: unspecified Qualified Code(s): K85.90 - Acute pancreatitis without necrosis or infection, unspecified
--- NOTE | 2018-08-18 07:58 | CT Scan Report ---
ABDOMEN AND PELVIS CT WITH IV CONTRAST CT DOSE: 939.94 mGy.cm HISTORY: Epigastric abd pain. Hx pancreatitis TECHNIQUE: Multiaxial CT images of the abdomen and pelvis were performed following the use of intrave nous contrast. A dose lowering technique was utilized adhering to the principles of ALARA. COMPARISON STUDY: Chest abdomen and pelvis CTA 10/14/2015. FINDINGS: Mosaic attenuation within the lung bases consistent with mild air trapping. No pneumoperito neum. No pneumatosis. No fractures within the visualized osseous structures. Tiny fat-containing umbi lical hernia. Mild hepatic steatosis. The gallbladder, spleen, adrenal glands, and kidneys are unrema rkable. No hydronephrosis. Peripancreatic inflammatory change surrounding the pancreatic head. This i s consistent with acute pancreatitis. No peripancreatic fluid collections. There is a punctate calcif ication at the pancreatic head. No change in the 1.9 cm cystic focus at the uncinate process of the p ancreas. 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 Subcentimeter retroperito jon lymph nodes do not meet CT criteria for pathologic confinement. The main portal vein is patent. Normal bladder. Colonic diverticulosis. No bowel wall thickening or obstruction. Normal appendix. IMPRESSION: 1. Inflammatory change surrounding the pancreatic head consistent with acute pancreatitis. 2. No bowel wall thickening or obstruction. 3. Normal appendix. 4. No change in the 1.9 cm cystic focus at the uncinate process of the pancreas. This favors a side b ranch intraductal papillary mucinous neoplasm. Electronically signed by: Joe Harris M.D. 08/18/2018 7:57 AM
[2018-08-18] MEDS: HYDROmorphone INJ 0.5 MG/0.5 ML SYR IV PRN ×2 (08:26→11:33)
[2018-08-18] MEDS ORDERED: FAMOTIDINE 20 MG in SYRINGE 3 ML IV SCH (09:00)
--- NOTE | 2018-08-18 11:29 | Gastrointestinal Consultation ---
Date of Consultation August 18, 2018 Assessment & Plan (1) Acute pancreatitis: Most likely alcohol induced pancreatitis. I tried to talk with the pt about the need for hydration and bowel rest and typical hospitalization of 2-3 days for acute pancreatitis. He was polite but stated that he will lose his job if he is not at work tomorrow, thus he plans to leave tonight or early tomorrow. I also tried to talk about the cause of the pancreatitis being from the alcohol but he feels that it was caused by stopping drinking 3 days ago. He does not agree to EUS. Would continue LR at 250/hr after bolus. Pt refused OP EUS. Recommend OP GI f/u for surveillance of pancreas cyst. Present on Admission?: Yes Supervising Physician Co-Signing Physician Notes I saw and evaluate the patient. We are consulted for evaluation of acute pancreatitis. It appears that the patient does drink a significant amount of alcohol at and reports being abstinent for approximately 72 hours. Physical examination Somewhat disheveled, no obvious distress Mild epigastric tenderness No scleral icterus Impression: Patient admitted with acute pancreatitis likely related to ongoing alcohol abuse. At this point I would recommend continued IV hydration for another 24 hours and perhaps beginning liquid diet tomorrow if patient pain- free. The patient will likely benefit from a several day hospitalization given his acute presentation. We would further recommend outpatient upper endoscopy and endoscopic ultrasound to ensure that there is not another etiology to his acute presentation. The patient stated that he is not interested in any endoscopic or further evaluation for this condition. Recommendation Continue with IV hydration as mentioned by Ms. Salas Daily labs Please call with any questions or concerns over the weekend History of Present Illness Reason for Consultation: Acute pancreatitis Requesting Physician: Dr. Castellanos Attending Physician: Ursula Harris MD History of Present Illness Mr. Babak Judge is a 43 yr old male with a hx of CAD status post stent, HTN, HLD, prior acute pancreatitis, possible IPMN, who admits to drinking increased amts of alcohol. his most recent drink was 4 days ago. The pt is sitting up on the side of the bed and is awake, alert, oriented. He is receiving LR at 500/hr. He tells me that he began with sudden, severe upper abdomen pain early yesterday morning but had to work. He was seen at [place], received one dose of pain meds and left because he felt that they "weren't doing anything" for the pancreatitis. Though his pain was only temporarily improved, he finished a few tasks at home. Pain became unbearable late yesterday and he presented to the [facility] ED. He tells me that this is his third episode of pancreatitis. He has refused EUS in the past (don't want a tube down my throat). When questioned about his alcohol intake, he is very invasive and eventually tells me that he quit drinking 3 days ago but was drinking about 12 beers/day. On arrival, lipase 4639. LFTs were normal. CT with IV contrast suggested acute pancreatitis and a stable uncinate process cyst suggestive of IPMN. The pt tells me that he will be leaving because he "has to work" tomorrow. Allergies Allergy/AdvReac Type Severity Reaction Status Date / Time No Known Allergies Allergy Unknown Verified 08/18/18 02:22 Home Medications Home Medications Medication Instructions Recorded Confirmed Type No Known Home Medications 08/18/18 08/18/18 History Patient History Medical History HTN (hypertension) (Chronic) H/O acute pancreatitis (Chronic) Anxiety (Chronic) Hyperlipidemia (Chronic) CAD (coronary artery disease) (Chronic) Tobacco abuse (Chronic) History of alcohol abuse (Chronic) Fatty liver (Chronic) Surgical History S/P coronary artery stent placement (Chronic) Social History Preferred Language: Cymro Communication Ability: Effective Beliefs That Will Affect Care: None Current Living Situation: Spouse and Family Other Information That Helps Us Care for You: No Feels Safe at Home: Yes Safety Concerns: Feels Safe At This Time Smoking Status: Current every day smoker Tobacco Type: cigarettes Do You Dip or Chew Tobacco: No Second Hand Exposure: Yes Tobacco Cessation Education Requested by Patient: No Hx Alcohol Use: Yes Alcohol type: beer and hard liquor Hx Substance Use: No Review of Systems Review of Systems: ROS: Gen: Denies weakness, fevers, weight loss Eyes: No eye redness, or pain, no recent vision changes Resp: No SOB, no cough Cardio: No palpitations/irregular beats, no chest pain GI: + abdominal pain : Denies pain on urination Skin: No jaundice, itching or new rashes Physical Exam Constitutional: WD/WN, vitals as above + overweight Eyes: PERRL, conjunctivae normal, anicteric sclerae ENMT: external ear and nose normal, oropharynx normal Neck: trachea midline, no thyromegaly Respiratory: normal respiratory effort, lungs clear to auscultation Cardiovascular: RRR, no murmur, no edema Gastrointestinal (Abdomen): Percussion/Palpation: + abdomen tender (moderate epigastric tenderness on palpation) and abdomen soft Musculoskeletal: no cyanosis or clubbing, extremities motor strength 5/5 Skin: no rashes, warm and dry Neurologic: PERRL, EOMI, accommodation nl, no face palsy, no dysarthria Psychiatric: A+Ox3, euthymic affect Lymphatic: no cervical or axillary lymphadenopathy Results & Data Vital Signs (Past 12 Hours) Vital Signs Temp Pulse Pulse Resp BP BP Pulse Ox 08/18/18 07:26 36.9 C 63 17 136/83 99 08/18/18 05:54 36.9 C 64 20 161/91 H 97 08/18/18 05:32 73 18 151/101 H 96 08/18/18 03:39 70 18 155/85 H 95 08/18/18 01:56 36.9 C 75 18 186/[address] abd/pelvis with IV contrast on 08/18/18: 1. Inflammatory change surrounding the pancreatic head consistent with acute pancreatitis. 2. No bowel wall thickening or obstruction. 3. Normal appendix. 4. No change in the 1.9 cm cystic focus at the uncinate process of the pancreas. 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 (1) Acute pancreatitis Acute pancreatitis complication: unspecified Pancreatitis type: unspecified pancreatitis type Qualified Code(s): K85.90 - Acute pancreatitis without necrosis or infection, unspecified
[2018-08-18] MEDS: LACTATED RINGER'S 1,000 ML IV SCH ×2 (13:29→13:35)
--- NOTE | 2018-08-18 15:02 | Hospitalist Progress Note ---
Date of Service August 18, 2018 Assessment & Plan (1) Acute pancreatitis: Resented with acute abdominal pain, history of excessive alcohol abuse Lipase more than 4000, Admitted with acute pancreatitis likely related to ongoing alcohol abuse Blood alcohol level less than 3 CT abdomen pelvis: Inflammatory changes surrounding the pancreatic head consistent with acute pancreatitis. Next 2. No bowel wall thickening or obstruction next 3. Change in 1.9 cm cystic focus at the uncinate process of pancreas compared to CAT scan in 10/14/2015 suggestive of IPMN Patient was started with IV fluids, bowel rest GI evaluation requested, appreciate input Patient wanted to leave hospital today, GI recommended continue IV hydration/inpatient hospital stay from the 24 to 48 hours Repeat lipase level in a.m. 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) History of multiple bouts of acute pancreatitis in the past, per patient, Drinks 12-16 beers a day States he quit drinking 3 days ago Patient is counseled numerous times regarding alcohol abstinence, continued hospital stay to receive treatment and outpatient GI follow-up Patient declined Left hospital AGAINST MEDICAL ADVICE Present on Admission?: Yes (2) CAD (coronary artery disease): History of coronary artery disease status post stent No complaint of angina, no shortness of breath or dyspnea on exertion Not on any cardiac meds as per patient Does not follow with any family physician or cardiology Patient is counseled strongly to/complete abstinence from alcohol and smoking cessation to reduce risk of future coronary event (3) History of alcohol abuse: Chronic long-term excessive alcohol abuse Drinks 12-16 beers a day States he had acute pancreatitis due to 3 times in the past Blood alcohol level less than 3 Patient is counseled to repeat a time for complete abstinence from alcohol Disposition: Left hospital AGAINST MEDICAL ADVICE Present on Admission?: Yes Subjective Patient reports a feeling much better, denies having abdominal pain, no nausea vomiting Adamant to be discharged home today Patient is counseled,lipase level more than 4000 in a[facility] lab Still have active pancreatitis Needs IV fluids, bowel rest, close monitoring of lipase, chemistry level, Patient reports that he had multiple bouts of pancreatitis in the past, usually gets resolved with self treatment, this time pain was worse decided to come to the ER Does not have any family physician Feels that we can offer him but nothing extra that he can do at home Drink water to keep himself hydrated, will stay with liquid diet Patient is updated regarding risk of leaving hospital prematurely without adequately treating acute pancreatitis: Which includes but not limited to fulminant pancreatitis, necrosis/abscess of pancreas, severe dehydration, sepsis-ultimately leading to Patient is aware of all the risks, does not want to stay in hospital Wants to sign out AMA Physical Exam Constitutional: WD/WN, vitals as above Eyes: PERRL, conjunctivae normal, anicteric sclerae ENMT: external ear and nose normal, oropharynx normal Neck: trachea midline, no thyromegaly Respiratory: normal respiratory effort, lungs clear to auscultation Cardiovascular: RRR, no murmur, no edema Gastrointestinal (Abdomen): Percussion/Palpation: + abdomen tender and abdomen soft Musculoskeletal: no cyanosis or clubbing, extremities motor strength 5/5 Skin: no rashes, warm and dry Neurologic: PERRL, EOMI, accommodation nl, no face palsy, no dysarthria Psychiatric: A+Ox3, euthymic affect Results & Data Vital Signs (Past 12 Hours) Vital Signs Temp Pulse Pulse Resp BP BP Pulse Ox 08/18/18 07:26 36.9 C 63 17 136/83 99 08/18/18 05:54 36.9 C 64 20 161/91 H 97 08/18/18 05:32 73 18 151/101 H 96 08/18/18 03:39 70 18 155/85 H 95 (1) CAD (coronary artery disease) Associated angina: without angina Coronary Disease-Associated Artery/Lesion type: [place] artery [place] vs. transplanted heart: [place] heart Qualified Code(s): I25.10 - Atherosclerotic heart disease of [place] coronary artery without angina pectoris (2) Acute pancreatitis Acute pancreatitis complication: unspecified Pancreatitis type: unspecified pancreatitis type Qualified Code(s): K85.90 - Acute pancreatitis without necrosis or infection, unspecified
[2018-08-18] MEDS ORDERED: SUMAtriptan succinate 25 MG TAB PO ONE (15:22)
--- NOTE | 2018-08-18 18:01 | Discharge Summary ---
Date of Service August 18, 2018 Admission HPI Per Admitting Provider cc: Hao Castellanos MD~ DICTATED BY: Hao Castellanos MD DATE OF ADMISSION: 08/18/2018 CHIEF COMPLAINT: Abdominal pain. HISTORY OF PRESENT ILLNESS: This is a 43-year-old male with past medical history significant for CAD status post stent, hypertension, hyperlipidemia, history of pancreatitis, history of possible IPMN, history of alcohol abuse, tobacco abuse. He presents with abdominal pain. The patient is not taking any medications for the heart disease and is supposed to also follow with GI for his IPMN, but he did not follow with any product safety manager or GI in the last 2 years. Not taking any medication because he thinks the medication does not help him. He is still drinking alcohol. 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 Last time he drank was 3 days ago. On 08/17/2018, he went to [facility] because of abdominal pain. The pain started in the morning at 9:00 a.m., severe in nature with some radiation to the back. He thought he might be having pancreatitis and he tried to be on liquid food, but it did not help. He went to [facility]. Because of them not giving any medications to him, he left the hospital, but when the labs came back, he was called and told that his lipase was elevated and he has pancreatitis and the patient chose to come to [facility]. Currently with the pain medication the pain is improved, but he says whenever he moves, he still has belly pain. His hemodynamics are stable. He has some headache. No runny nose, no sore throat, no cold symptoms, no chest pain, no shortness of breath, no cough. He felt somewhat feverish. No nausea, no vomiting, no diarrhea or constipation. No swelling in the legs. No rash. Principal Diagnosis Alcohol abuse Acute alcoholic pancreatitis Patient left AGAINST MEDICAL ADVICE Discharge Exam Constitutional WD/WN, vitals as above Eyes PERRL, conjunctivae normal, anicteric sclerae ENMT external ear and nose normal, oropharynx normal Neck trachea midline, no thyromegaly Respiratory normal respiratory effort, lungs clear to auscultation Cardiovascular RRR, no murmur, no edema Gastrointestinal (Abdomen) Percussion/Palpation: + abdomen tender and abdomen soft Musculoskeletal no cyanosis or clubbing, extremities motor strength 5/5 Skin no rashes, warm and dry Neurologic PERRL, EOMI, accommodation nl, no face palsy, no dysarthria Psychiatric A+Ox3, euthymic affect Discharge Data Allergies Allergy/AdvReac Type Severity Reaction Status Date / Time No Known Allergies Allergy Unknown Verified 08/18/18 02:22 Consultations 08/18/18 04:09 ED Decision to Admit Stat 08/18/18 08:00 Consult Gastroenterology Routine Ordered Studies 08/18/18 02:20 CT abd pelvis IV con only Urgent Hospital Course (1) Acute pancreatitis: Resented with acute abdominal pain, history of excessive alcohol abuse Lipase more than 4000, Admitted with acute pancreatitis likely related to ongoing alcohol abuse Blood alcohol level less than 3 CT abdomen pelvis: Inflammatory changes surrounding the pancreatic head consistent with acute pancreatitis. Next 2. No bowel wall thickening or obstruction next 3. Change in 1.9 cm cystic focus at the uncinate process of pancreas compared to CAT scan in 10/14/2015 suggestive of IPMN Patient was started with IV fluids, bowel rest GI evaluation requested, appreciate input Patient wanted to leave hospital today, GI recommended continue IV hydration/inpatient hospital stay from the 24 to 48 hours Repeat lipase level in a.m. 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) History of multiple bouts of acute pancreatitis in the past, per patient, Drinks 12-16 beers a day States he quit drinking 3 days ago Patient is counseled numerous times regarding alcohol abstinence, continued hospital stay to receive treatment and outpatient GI follow-up Patient declined Left hospital AGAINST MEDICAL ADVICE (2) CAD (coronary artery disease): History of coronary artery disease status post stent No complaint of angina, no shortness of breath or dyspnea on exertion Not on any cardiac meds as per patient Does not follow with any family physician or cardiology Patient is counseled strongly to/complete abstinence from alcohol and smoking cessation to reduce risk of future coronary event (3) History of alcohol abuse: Chronic long-term excessive alcohol abuse Drinks 12-16 beers a day States he had acute pancreatitis due to 3 times in the past Blood alcohol level less than 3 Patient is counseled to repeat a time for complete abstinence from alcohol Disposition: Left hospital AGAINST MEDICAL ADVICE Total Time Total Time Spent Total Time Spent (In Minutes): Approximately 45 minutes Total Time Includes: Examination of the Patient and Discharge Planning Discharge Plan Discharge Items Patient Disposition: Against Medical Advice Driving/Machine Use: Resume 3 days after discharge Driving/Machine Use Comment: keep hydrated , liquid diet 1 week, no Alcohol/nearest ER with any pain Diet: Clear liquid Admission Data Admit Date/Time: 08/18/18 05:02 Service: Medical Other DC Date/Time DO NOT enter until pt leaves facility: 08/18/18 16:47
[2018-08-19] MEDS ORDERED: GABAPENTIN 600 MG TAB PO SCH (02:00)
[2018-08-20] MEDS ORDERED: GABAPENTIN 600 MG TAB PO SCH (06:00)
[2018-08-21 13:07] LABS: Hydrocodone Urine NEGATIVE NG/ML (CUTOFF=50); Hydromor Urine NEGATIVE NG/ML (CUTOFF=50); Morphine Urine 2150 NG/ML (CUTOFF=50); Norhydrocodone Conf Ur NEGATIVE NG/ML (CUTOFF=50); Noroxycodone Urine NEGATIVE NG/ML (CUTOFF=50); Oxycodone Urine NEGATIVE NG/ML (CUTOFF=50)
[2018-08-21] MEDS ORDERED: GABAPENTIN 600 MG TAB PO SCH (18:00)
== END 2018-08-18 16:47 | disposition left against medical advice (07) | DRG 439 ==
LOC: ED 01:51 → SUATTDRO 05:02 → 2N 05:02